=== PATIENT | male | born 1935 | race Caucasian/White ===

== ENCOUNTER 2016-10-31 10:39 | Inpatient (IN) | payer OTHER, MEDICARE ==
[~2016-10-31] VITALS: Ht 180.3 cm; Wt 69.4 kg
--- NOTE | ~2016-10-31 | EKG ---
[address] [place] [address] ELECTROCARDIOGRAM REPORT Name: CRAYN ROSS Room #: 170-7 ADM IN M.R.#: [id number] Admission: 10/31/16 Attend Phys: Marcos Medina MD Discharge: Date of : 39 Report #: [id number] THIS REPORT FOR: //name// [facility] ED Test Date: 2016-10-31 Test Time: 10:47:11 Pat Name: CARYN ROSS Department: Room: 170 Gender: M [employer]: LEOPOLDO : 1935 Requested By: Elena Pastrana Order Number: [id number] MD: Silver Johnson Measurements Intervals [place] Rate: 67 P: 63 WA: 178 QRS: 66 QRSD: 92 T: 68 QT: 383 QTc: 405 Interpretive Statements Sinus rhythm Compared to ECG 01/06/2016 16:55:20 Early repolarization no longer present Electronically Signed On 10-31-2016 13:35:01 CDT by Silver Johnson [email or web address] <ELECTRONICALLY SIGNED> By: Silver Johnson MD 10/31/16 1335 [id number] 104 Silver Johnson MD /ASHLIE
[~2016-10-31 10:39] MED LIST: ACTOS 45 MG45 M1 PO; ALDACTONE25 MG PO; ASPIRIN EC81 M1 PO; ATENOLOL 50MG T50 M1 PO; CRESTOR20 MG PO; DEMADEX20 MG PO; DUONEB 2.5-0.5 M3 ML INH; GLIPIZIDE XL10 MG PO; GLUCOPHAGE1000 MG PO; LANTUS INJECTION; LOSARTAN POTASS50 MG PO; METOCLOPRAMIDE10 MG PO; MOBIC7.5 MG PO; NITROQUICK0.4 MG; NORVASC10 MG PO; NOVOLIN N100 UNIT/3 INJECTION; PLAVIX 75 MG TA75 M1 PO; PRILOSEC 20 MG20 MG PO; RELAFEN500 MG PO; RESTORIL15 MG PO; ZOLOFT100 MG PO
[2016-10-31 10:43] VITALS: BP 138/58
[2016-10-31 11:25] LABS: BASOPHILS 0.8 % (0.0-2.0); EOSINOPHILS 0.9 % (0.0-3.0); HEMATOCRIT 35.9 % (42.0-52.0); HEMOGLOBIN 11.8 gm/dL (14.0-18.0); LYMPHOCYTES 12.1 % (24.0-44.0); MANUAL DIFF NO; MCH 26.6 pg (26.0-34.0); MCHC 32.8 g/dL (28.0-37.0); MCV 81.3 fL (80.0-100.0); MONOCYTES 5.4 % (1.0-8.0); PLATELET COUNT 246 thou/uL (150-400); POLYS 80.8 % (36.0-66.0); RBC 4.42 mil/uL (4.50-6.00); RDW 15.5 % (10.5-14.5); WBC 9.9 thou/uL (4.0-11.0)
[2016-10-31 11:33] LABS: ANION GAP 11 mmol/L (7-16); BUN 59 mg/dL (7-18); CALCIUM 9.4 mg/dL (8.5-10.1); CHLORIDE 103 mmol/L (98-107); CO2 22 mmol/L (21-32); CREATININE 2.1 mg/dL (0.7-1.3); GLUCOSE 220 mg/dL (74-106); POTASSIUM 4.7 mmol/L (3.5-5.1); SODIUM 136 mmol/L (136-145)
[2016-10-31 11:41] LABS: TROPONIN-I < 0.04 ng/mL (<0.04-0.07)
[2016-10-31 13:53] VITALS: BP 124/48
[2016-10-31 14:15] VITALS: BP 122/41
[2016-10-31] MEDS ORDERED: AMLODIPINE BESY10 MG PO (14:33)
[2016-10-31] MEDS ORDERED: LANTUS100 UNIT/M SUBQ (14:33)
[2016-10-31] MEDS ORDERED: GLUCOTROL5 MG PO (14:34)
[2016-10-31] MEDS ORDERED: PROTONIX 20 MG20 M1 PO (14:35)
[2016-10-31] MEDS ORDERED: TENORMIN50 MG PO (14:36)
[2016-10-31] MEDS ORDERED: METFORMIN HCL500 MG PO (14:37)
[2016-10-31] MEDS ORDERED: PLAVIX 75 MG TA75 M1 PO (14:38)
[2016-10-31 16:45] VITALS: BP 104/45
[2016-10-31 17:30] VITALS: BP 104/45
[2016-10-31 19:47] VITALS: BP 110/46
[2016-11-01 05:30] VITALS: BP 105/47
[2016-11-01 06:06] LABS: HEMATOCRIT 33.7 % (42.0-52.0); HEMOGLOBIN 11.2 gm/dL (14.0-18.0); MCH 26.5 pg (26.0-34.0); MCHC 33.1 g/dL (28.0-37.0); MCV 79.9 fL (80.0-100.0); RBC 4.21 mil/uL (4.50-6.00); WBC 8.1 thou/uL (4.0-11.0)
[2016-11-01 06:26] LABS: ALBUMIN 3.3 g/dL (3.4-5.0); CALCIUM 9.3 mg/dL (8.5-10.1); CREATININE 1.7 mg/dL (0.7-1.3); POTASSIUM 4.3 mmol/L (3.5-5.1); TOTAL BILIRUBIN 0.3 mg/dL (<0.1-1.0); TOTAL PROTEIN 7.1 g/dL (6.4-8.2)
[2016-11-01 08:00] VITALS: BP 115/42
[2016-11-01 12:04] VITALS: BP 115/42
[2016-11-01 12:12] LABS: APTT 26.4 Seconds (24.5-32.8); PROTIME 10.7 Seconds (9.3-11.4)
[2016-11-01 16:00] VITALS: BP 123/53
[2016-11-01 19:17] VITALS: BP 127/43
[2016-11-02 05:31] VITALS: BP 136/48
[2016-11-02 07:52] VITALS: BP 121/50
[2016-11-02 08:00] VITALS: BP 121/50
[2016-11-02] MEDS ORDERED: HYDROCODON-ACE1 EAC7 PO (11:33)
[2016-11-02] MEDS ORDERED: COLACE 100 MG100 MG PO (11:33)
[2016-11-02 11:54] VITALS: BP 121/50
[2016-11-02 13:42] VITALS: BP 121/50
== END 2016-11-02 14:51 | disposition home or self-care (01) | DRG 515 ==
LOC: ER 10:39 → 4S 12:27 → EROBS 12:27 → 4S 14:07
PROVIDERS: Emergency Medicine; Family Medicine; Radiology Diagnostic Radiology
PROC: 0PS43ZZ Reposition Thoracic Vertebra, Percutaneous Approach (ICD-10-PCS; principal; 2016-11-01)
PROC: 0PU43JZ Supplement Thoracic Vertebra with Synthetic Substitute, Percutaneous Approach (ICD-10-PCS; principal; 2016-11-01)
DX: M48.54XA Collapsed vertebra, not elsewhere classified, thoracic region, initial encounter for fracture (principal); N17.0 Acute kidney failure with tubular necrosis; M19.90 Unspecified osteoarthritis, unspecified site; E78.5 Hyperlipidemia, unspecified; I50.9 Heart failure, unspecified; K59.00 Constipation, unspecified; E11.51 Type 2 diabetes mellitus with diabetic peripheral angiopathy without gangrene; I11.0 Hypertensive heart disease with heart failure; I25.10 Atherosclerotic heart disease of native coronary artery without angina pectoris; I65.29 Occlusion and stenosis of unspecified carotid artery; Z87.891 Personal history of nicotine dependence; Z79.82 Long term (current) use of aspirin; Z79.899 Other long term (current) drug therapy; Z98.62 Peripheral vascular angioplasty status; Z79.4 Long term (current) use of insulin; Z98.42 Cataract extraction status, left eye; Z98.41 Cataract extraction status, right eye
CPT/HCPCS: 10100

== ENCOUNTER 2016-11-11 18:59 | Emergency (ER) | payer OTHER, MEDICARE ==
[~2016-11-11] VITALS: Ht 180.3 cm; Wt 69.0 kg
[~2016-11-11 18:59] MED LIST changes: +AMLODIPINE BESY10 MG PO; +COLACE 100 MG100 MG PO; +GLUCOTROL5 MG PO; +HYDROCODON-ACE1 EAC7 PO; +LANTUS100 UNIT/M SUBQ; +METFORMIN HCL500 MG PO; +PROTONIX 20 MG20 M1 PO; +TENORMIN50 MG PO
[2016-11-11] MEDS ORDERED: NORCO 5-325 TA1 EACH PO (21:15)
== END 2016-11-11 21:36 | disposition home or self-care (01) ==
LOC: ER 18:59
DX: M54.6 Pain in thoracic spine (principal); E11.9 Type 2 diabetes mellitus without complications; M19.90 Unspecified osteoarthritis, unspecified site; E78.5 Hyperlipidemia, unspecified; I73.9 Peripheral vascular disease, unspecified; I11.0 Hypertensive heart disease with heart failure; I50.9 Heart failure, unspecified; Z95.5 Presence of coronary angioplasty implant and graft; Z79.4 Long term (current) use of insulin

== ENCOUNTER → 2016-11-22 | Outpatient (CLI) | payer OTHER, MEDICARE ==
[~2016-11-22] MED LIST changes: +NORCO 5-325 TA1 EACH PO
== END ==
LOC: MRI 11:33
DX: M54.6 Pain in thoracic spine (principal); Z98.890 Other specified postprocedural states

== ENCOUNTER 2017-05-19 13:13 | Emergency (ER) | payer OTHER, MEDICARE ==
[~2017-05-19] VITALS: Ht 177.8 cm; Wt 74.8 kg
[2017-05-19 17:11] VITALS: BP 127/78
== END 2017-05-19 17:12 | disposition home or self-care (01) ==
LOC: ER 13:13
DX: S63.592A Other specified sprain of left wrist, initial encounter (principal); S01.01XA Laceration without foreign body of scalp, initial encounter; E11.9 Type 2 diabetes mellitus without complications; M19.90 Unspecified osteoarthritis, unspecified site; E78.5 Hyperlipidemia, unspecified; I11.0 Hypertensive heart disease with heart failure; I50.9 Heart failure, unspecified; Z87.891 Personal history of nicotine dependence; Z79.4 Long term (current) use of insulin; W00.0XXA Fall on same level due to ice and snow, initial encounter; Y93.89 Activity, other specified; Y92.89 Other specified places as the place of occurrence of the external cause; Y99.8 Other external cause status

== ENCOUNTER → 2018-02-11 | Outpatient (CLI) | payer OTHER, MEDICARE ==
[~2018-02-11] MED LIST changes: +ALLOPURINOL 10100 M1 PO; +FLOMAX0.4 MG PO; +JANUVIA100 MG PO; +NITROGLYCERIN0.4 MG SUBLING; +SODIUM BICARBO650 M3 PO; +TAMIFLU30 MG PO; +TOPROL XL25 MG PO; +VITAMIN D1000 UNI1 PO
== END ==
LOC: CAT 09:09
DX: J43.9 Emphysema, unspecified (principal); I10 Essential (primary) hypertension; M19.90 Unspecified osteoarthritis, unspecified site; E11.9 Type 2 diabetes mellitus without complications; E78.5 Hyperlipidemia, unspecified; Z87.891 Personal history of nicotine dependence

== ENCOUNTER 2018-02-25 17:29 | Inpatient (IN) | payer OTHER, MEDICARE ==
[~2018-02-25] VITALS: Ht 177.8 cm; Wt 73.5 kg
--- NOTE | ~2018-02-25 | EKG ---
[address] [email or web address] [place] [address] ELECTROCARDIOGRAM REPORT Name: CARYN ROSS Room #: 431-P ADM IN M.R.#: [id number] Admission: 02/25/18 Attend Phys: Aime Bowden MD Discharge: Date of : 39 Report #: [id number] THIS REPORT FOR: //name// [facility] ED Test Date: 2018-02-25 Test Time: 17:42:11 Pat Name: CARYN ROSS Department: Room: [facility] Gender: M [employer] Man: ALVARO : 1935 Requested By: Nelly Constantino Order Number: [id number] MD: Jaren Caldwell Measurements Intervals [place] Rate: 84 P: 85 MT: 157 QRS: 62 QRSD: 86 T: QT: 355 QTc: 420 Interpretive Statements Sinus rhythm Borderline repolarization abnormality Compared to ECG 10/31/2016 10:47:11 No significant changes Electronically Signed On 02-26-2018 9:00:49 CDT by Jaren Caldwell [email or web address] <ELECTRONICALLY SIGNED> By: Jaren Caldwell MD, [facility] 02/26/18 09 41 41 Jaren Caldwell MD, FACC /EPI
[~2018-02-25 17:29] MED LIST changes: -ALLOPURINOL 10100 M1 PO; -FLOMAX0.4 MG PO; -JANUVIA100 MG PO; -NITROGLYCERIN0.4 MG SUBLING; -SODIUM BICARBO650 M3 PO; -TAMIFLU30 MG PO; -TOPROL XL25 MG PO; -VITAMIN D1000 UNI1 PO
[2018-02-25 17:37] VITALS: BP 125/74
[2018-02-25 17:59] LABS: ABSOLUTE NEUTROPHILS 10.5 thou/uL (1.4-8.2); BASOPHILS 0.4 % (0.0-2.0); EOSINOPHILS 0.4 % (0.0-3.0); HEMATOCRIT 33.6 % (42.0-52.0); HEMOGLOBIN 10.7 gm/dL (14.0-18.0); LYMPHOCYTES 8.5 % (24.0-44.0); MCH 23.7 pg (26.0-34.0); MCHC 31.8 g/dL (28.0-37.0); MCV 74.4 fL (80.0-100.0); PLATELET COUNT 259 thou/uL (150-400); POLYS 84.7 % (36.0-66.0); RBC 4.52 mil/uL (4.50-6.00); RDW 19.9 % (10.5-14.5); WBC 12.4 thou/uL (4.0-11.0)
[2018-02-25] MEDS ORDERED: ALLOPURINOL 10100 M1 PO (18:03)
[2018-02-25] MEDS ORDERED: JANUVIA100 MG PO (18:03)
[2018-02-25] MEDS ORDERED: TOPROL XL25 MG PO (18:06)
[2018-02-25] MEDS ORDERED: NITROGLYCERIN0.4 MG SUBLING (18:07)
[2018-02-25] MEDS ORDERED: VITAMIN D1000 UNI1 PO (18:08)
[2018-02-25] MEDS ORDERED: FLOMAX0.4 MG PO (18:08)
[2018-02-25 18:18] LABS: ANION GAP 13 mmol/L (7-16); BUN 95 mg/dL (7-18); CALCIUM 9.7 mg/dL (8.5-10.1); CHLORIDE 96 mmol/L (98-107); CO2 21 mmol/L (21-32); CREATININE 3.2 mg/dL (0.7-1.3); GLUCOSE 420 mg/dL (74-106); POTASSIUM 4.7 mmol/L (3.5-5.1); SODIUM 130 mmol/L (136-145)
[2018-02-25 18:25] LABS: ALBUMIN 3.5 g/dL (3.4-5.0); MAGNESIUM 1.9 mg/dL (1.8-2.4); SGOT 9 U/L (15-37); SGPT 15 U/L (30-65); TOTAL BILIRUBIN 0.4 mg/dL (<0.1-1.0); TOTAL PROTEIN 8.3 g/dL (6.4-8.2); TROPONIN-I <0.06 ng/mL (<0.06)
[2018-02-25 18:41] LABS: HYPOCHROMASIA 1+; MICROCYTES 1+
[2018-02-25 18:42] LABS: OVALOCYTES 1+
[2018-02-25 19:12] LABS: URINE BILIRUBIN NEGATIVE (Negative); URINE BLOOD NEGATIVE (Negative); URINE CLARITY CLEAR; URINE COLOR YELLOW; URINE GLUCOSE-RANDOM* 1+ (Negative); URINE KETONES NEGATIVE (Negative); URINE LEUKOCYTES-REFLEX NEGATIVE (Negative); URINE NITRITE-REFLEX NEGATIVE (Negative); URINE PROTEIN (DIPSTICK) NEGATIVE (Negative); URINE UROBILINOGEN 0.2 E.U./dl (0.2-1.0)
[2018-02-25 20:19] VITALS: BP 130/42
[2018-02-25 20:34] VITALS: BP 130/42
[2018-02-25 20:50] VITALS: BP 146/54
[2018-02-26 04:30] VITALS: BP 94/44
[2018-02-26 06:06] LABS: HEMOGLOBIN 9.8 gm/dL (14.0-18.0); MCH 24.3 pg (26.0-34.0); MCHC 32.6 g/dL (28.0-37.0); MCV 74.6 fL (80.0-100.0); RBC 4.02 mil/uL (4.50-6.00); RDW 19.9 % (10.5-14.5); WBC 8.5 thou/uL (4.0-11.0)
[2018-02-26 06:15] LABS: CALCIUM 9.8 mg/dL (8.5-10.1); CREATININE 2.5 mg/dL (0.7-1.3)
[2018-02-26 07:50] VITALS: BP 107/51
[2018-02-26 15:36] VITALS: BP 128/78
[2018-02-26 20:30] VITALS: BP 126/43
[2018-02-26 22:06] LABS: GLYCOHEMOGLOBIN (HGB A1C) 7.5 % (4.8-5.6)
[2018-02-27 05:06] VITALS: BP 118/48
[2018-02-27 05:18] LABS: ABSOLUTE NEUTROPHILS 6.6 thou/uL (1.4-8.2); BASOPHILS 1.2 % (0.0-2.0); EOSINOPHILS 2.4 % (0.0-3.0); HEMATOCRIT 30.3 % (42.0-52.0); HEMOGLOBIN 9.6 gm/dL (14.0-18.0); LYMPHOCYTES 16.4 % (24.0-44.0); MCH 23.5 pg (26.0-34.0); MCHC 31.5 g/dL (28.0-37.0); MCV 74.4 fL (80.0-100.0); MONOCYTES 7.7 % (1.0-8.0); PLATELET COUNT 257 thou/uL (150-400); POLYS 72.3 % (36.0-66.0); RBC 4.08 mil/uL (4.50-6.00); RDW 19.6 % (10.5-14.5); WBC 9.1 thou/uL (4.0-11.0)
[2018-02-27 05:29] LABS: ALBUMIN 2.8 g/dL (3.4-5.0); CALCIUM 9.3 mg/dL (8.5-10.1); CREATININE 1.7 mg/dL (0.7-1.3); MAGNESIUM 1.7 mg/dL (1.8-2.4); PHOSPHORUS 2.8 mg/dL (2.5-4.9); POTASSIUM 5.6 mmol/L (3.5-5.1)
[2018-02-27 10:08] VITALS: BP 106/57
[2018-02-27] MEDS ORDERED: SODIUM BICARBO650 M3 PO (11:05)
[2018-02-27] MEDS ORDERED: TAMIFLU30 MG PO (11:05)
[2018-02-27 11:14] VITALS: BP 106/57
[2018-02-27 15:19] LABS: CALCIUM 9.6 mg/dL (8.5-10.1); CREATININE 1.7 mg/dL (0.7-1.3); POTASSIUM 5.1 mmol/L (3.5-5.1)
[2018-02-27 20:00] VITALS: BP 134/49
[2018-02-28 05:39] VITALS: BP 119/50
[2018-02-28 06:03] LABS: ABSOLUTE NEUTROPHILS 8.2 thou/uL (1.4-8.2); BASOPHILS 1.1 % (0.0-2.0); EOSINOPHILS 2.2 % (0.0-3.0); HEMATOCRIT 31.6 % (42.0-52.0); HEMOGLOBIN 10.2 gm/dL (14.0-18.0); LYMPHOCYTES 15.7 % (24.0-44.0); MCH 24.1 pg (26.0-34.0); MCHC 32.2 g/dL (28.0-37.0); MCV 74.7 fL (80.0-100.0); MONOCYTES 7.2 % (1.0-8.0); PLATELET COUNT 280 thou/uL (150-400); POLYS 73.8 % (36.0-66.0); RBC 4.23 mil/uL (4.50-6.00); WBC 11.1 thou/uL (4.0-11.0)
[2018-02-28 06:17] LABS: CALCIUM 9.9 mg/dL (8.5-10.1); CREATININE 1.7 mg/dL (0.7-1.3); MAGNESIUM 1.6 mg/dL (1.8-2.4); PHOSPHORUS 3.5 mg/dL (2.5-4.9); POTASSIUM 5.5 mmol/L (3.5-5.1)
[2018-02-28 07:22] VITALS: BP 130/51
[2018-02-28] MEDS ORDERED: DEMADEX20 MG PO ×3 (12:50→14:51)
[2018-02-28 13:25] LABS: CREATININE 1.9 mg/dL (0.7-1.3); POTASSIUM 4.7 mmol/L (3.5-5.1)
[2018-02-28 13:55] VITALS: BP 155/46
[2018-02-28 15:07] VITALS: BP 155/46
== END 2018-02-28 17:26 | disposition home or self-care (01) | DRG 682 ==
LOC: ER 17:29 → 4E 18:57 → EROBS 18:57 → 4E 20:36
PROVIDERS: Hospitalist; Nurse Practitioner Acute Care; Nurse Practitioner Family
DX: N17.9 Acute kidney failure, unspecified (principal); I50.33 Acute on chronic diastolic (congestive) heart failure; E87.1 Hypo-osmolality and hyponatremia; I13.0 Hypertensive heart and chronic kidney disease with heart failure and stage 1 through stage 4 chronic kidney disease, or unspecified chronic kidney disease; J11.1 Influenza due to unidentified influenza virus with other respiratory manifestations; M19.90 Unspecified osteoarthritis, unspecified site; E78.5 Hyperlipidemia, unspecified; E11.51 Type 2 diabetes mellitus with diabetic peripheral angiopathy without gangrene; E86.0 Dehydration; I27.20 Pulmonary hypertension, unspecified; N18.3 Chronic kidney disease, stage 3 (moderate); I25.10 Atherosclerotic heart disease of native coronary artery without angina pectoris; E11.65 Type 2 diabetes mellitus with hyperglycemia; K21.9 Gastro-esophageal reflux disease without esophagitis; D64.9 Anemia, unspecified; E11.22 Type 2 diabetes mellitus with diabetic chronic kidney disease; E83.42 Hypomagnesemia; Z95.5 Presence of coronary angioplasty implant and graft; Z79.4 Long term (current) use of insulin; Z98.42 Cataract extraction status, left eye; Z98.41 Cataract extraction status, right eye; Z87.81 Personal history of (healed) traumatic fracture; Z87.828 Personal history of other (healed) physical injury and trauma; Z87.891 Personal history of nicotine dependence; Z82.49 Family history of ischemic heart disease and other diseases of the circulatory system; Z82.3 Family history of stroke; Z79.82 Long term (current) use of aspirin; Z79.899 Other long term (current) drug therapy
CPT/HCPCS: 10183

== ENCOUNTER → 2019-10-14 | Outpatient (CLI) | payer OTHER, MEDICARE ==
[~2019-10-14] MED LIST changes: +ALLOPURINOL 10100 M1 PO; +FLOMAX0.4 MG PO; +JANUVIA100 MG PO; +NITROGLYCERIN0.4 MG SUBLING; +SODIUM BICARBO650 M3 PO; +TAMIFLU30 MG PO; +TOPROL XL25 MG PO; +VITAMIN D1000 UNI1 PO
== END ==
LOC: SJCVCIMAG 13:52 → SJCVC 13:52
PROVIDERS: ATTEND Internal Medicine Cardiovascular Disease
DX: I73.9 Peripheral vascular disease, unspecified (principal); I25.10 Atherosclerotic heart disease of native coronary artery without angina pectoris; E78.00 Pure hypercholesterolemia, unspecified; I65.23 Occlusion and stenosis of bilateral carotid arteries; R94.31 Abnormal electrocardiogram [ECG] [EKG]; E11.22 Type 2 diabetes mellitus with diabetic chronic kidney disease; I13.0 Hypertensive heart and chronic kidney disease with heart failure and stage 1 through stage 4 chronic kidney disease, or unspecified chronic kidney disease; I50.9 Heart failure, unspecified; N18.2 Chronic kidney disease, stage 2 (mild); J43.9 Emphysema, unspecified; I77.1 Stricture of artery; I27.20 Pulmonary hypertension, unspecified; Z79.4 Long term (current) use of insulin; Z79.899 Other long term (current) drug therapy; Z95.820 Peripheral vascular angioplasty status with implants and grafts; Z86.79 Personal history of other diseases of the circulatory system; Z87.891 Personal history of nicotine dependence

== ENCOUNTER → 2020-02-22 | Outpatient (CLI) | payer OTHER, MEDICARE | LOC: RAD 12:03 | PROVIDERS: ATTEND Internal Medicine | DX: J98.4 Other disorders of lung (principal); J44.9 Chronic obstructive pulmonary disease, unspecified; M47.814 Spondylosis without myelopathy or radiculopathy, thoracic region; Z98.890 Other specified postprocedural states ==

== ENCOUNTER → 2020-03-23 | Outpatient (CLI) | payer OTHER, MEDICARE | LOC: SJCVCIMAG 12:12 | PROVIDERS: ATTEND Internal Medicine Cardiovascular Disease | DX: I49.3 Ventricular premature depolarization (principal); I25.10 Atherosclerotic heart disease of native coronary artery without angina pectoris; I73.9 Peripheral vascular disease, unspecified; I12.9 Hypertensive chronic kidney disease with stage 1 through stage 4 chronic kidney disease, or unspecified chronic kidney disease; N18.30 Chronic kidney disease, stage 3 unspecified; Z79.899 Other long term (current) drug therapy; Z87.891 Personal history of nicotine dependence ==

== ENCOUNTER → 2020-08-17 | Outpatient (CLI) | payer OTHER, MEDICARE | LOC: RAD 12:38 | PROVIDERS: ATTEND Family Medicine | DX: J84.10 Pulmonary fibrosis, unspecified (principal); J98.4 Other disorders of lung ==

== ENCOUNTER → 2020-08-31 | Outpatient (CLI) | payer OTHER, MEDICARE | LOC: RAD 14:44 | PROVIDERS: ATTEND Internal Medicine | DX: J84.10 Pulmonary fibrosis, unspecified (principal); J98.4 Other disorders of lung; M25.78 Osteophyte, vertebrae; J44.9 Chronic obstructive pulmonary disease, unspecified ==

== ENCOUNTER → 2020-12-26 | Outpatient (CLI) | payer OTHER, MEDICARE | LOC: SJCVCIMAG 08:48 | PROVIDERS: ATTEND Internal Medicine Cardiovascular Disease | DX: I65.23 Occlusion and stenosis of bilateral carotid arteries (principal); I08.1 Rheumatic disorders of both mitral and tricuspid valves; I25.10 Atherosclerotic heart disease of native coronary artery without angina pectoris; I10 Essential (primary) hypertension; E78.00 Pure hypercholesterolemia, unspecified; J44.9 Chronic obstructive pulmonary disease, unspecified; E11.51 Type 2 diabetes mellitus with diabetic peripheral angiopathy without gangrene; E11.22 Type 2 diabetes mellitus with diabetic chronic kidney disease; I13.0 Hypertensive heart and chronic kidney disease with heart failure and stage 1 through stage 4 chronic kidney disease, or unspecified chronic kidney disease; I50.9 Heart failure, unspecified; N18.9 Chronic kidney disease, unspecified; E78.5 Hyperlipidemia, unspecified; G47.33 Obstructive sleep apnea (adult) (pediatric); Z87.891 Personal history of nicotine dependence; Z72.89 Other problems related to lifestyle; Z79.4 Long term (current) use of insulin; Z79.84 Long term (current) use of oral hypoglycemic drugs; Z79.899 Other long term (current) drug therapy ==